=== PATIENT | female | born 1940 | race Caucasian/White ===

== ENCOUNTER 2022-11-11 03:14 | Day surgery (SDC) | payer MEDICARE, OTHER, SELFPAY ==
[2022-11-06 11:12] VITALS: BMI 28.2
--- NOTE | 2022-11-06 11:35 | PC.NURSE ---
Completed pre-procedure phone call with son/GONZÁLEZ Cesar. Son was unsure of patients medications and cardiac history. Called and verified medication list and cardiac history with PCP office.
[2022-11-11] MEDS: LACTATED RINGERS 1,000 ML 150 ML IV CONT (10:28)
--- NOTE | 2022-11-11 10:33 | PM.HPGS ---
History of Present Illness History of Present Illness Consent: Risks, benefits, and alternatives have been discussed and questions answered. Patient agrees to proceed with procedure. Chief complaint: dysphagia Narrative: Greta Estrada is a 82 year old female Referred for EGD. Patient has difficulty swallowing for many years. She foods as though food hangs in her throat. She states this happens with all categories of food but not with liquids. She denies any heartburn or chest pain. She has no abdominal pain. 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 Patient is unable to say whether this symptoms similar to prior symptoms many years ago. Family history noncontributory. Review of Systems Review of Systems: Review of systems noncontributory. [facility] Social History Social History Smoking status: Never smoker Alcohol intake: never Substance use type: does not use Living arrangements: with family Spiritual care concerns: No Meds Home Medications and Allergies Home Medications Medication Instructions Recorded Confirmed Type carbidopa 25 mg-levodopa 100 mg 1 tablet PO TID 11/06/22 11/11/22 History tablet diltiazem HCl 180 mg 180 mg PO DAILY 11/06/22 11/11/22 History capsule,extended release 24 hr, controlled empagliflozin 10 mg tablet 10 mg PO DAILY 11/06/22 11/11/22 History (Jardiance) famotidine 20 mg tablet 20 mg PO BID 11/06/22 11/11/22 History gabapentin 300 mg capsule 300 mg PO HS 11/06/22 11/11/22 History glimepiride 4 mg tablet 4 mg PO BID 11/06/22 11/11/22 History iron-vitamin B complex tablet 1 tablet PO DAILY 11/06/22 11/06/22 History linaclotide 72 mcg capsule 72 mcg PO DAILY PRN Constipation 11/06/22 11/11/22 History (Linzess) melatonin 5 mg tablet 5 mg PO HS PRN Sleep 11/06/22 11/06/22 History metformin 500 mg tablet 1,000 mg PO BID 11/06/22 11/06/22 History oxybutynin chloride 5 mg tablet 10 mg PO BID 11/06/22 11/06/22 History Allergies Allergy/AdvReac Type Severity Reaction Status Date / Time No Known Allergies Allergy Verified 11/11/22 10:23 Exam Narrative: Physical exam reveals patient to be alert. Vital signs stable. HEENT exam is unremarkable. Patient is anicteric. Lungs are clear to auscultation and percussion. Heart is without murmur or extra sounds. Abdomen bowel sounds are present soft nontender with no organomegaly. Assessment and Plan Assessment and plan (1) Dysphagia: Code(s): R13.10 - Dysphagia, unspecified Status: Acute Assessment and Plan: Patient complains of difficulty swallowing. She reports food catching in her throat. But not liquids. Plan for EGD to assess more thoroughly. She does have a distant history of esophageal web. We will look to see if this has recurred. Patient on famotidine 20mg p.o. b.i.d.. A apparently for indigestion but patient is somewhat uncertain as to etiology.
[2022-11-11 10:37] LABS: Glucose Point of Care 118 mg/dl (65-105)
[2022-11-11 10:41] VITALS: BP 139/113; PULSE 119; RESP 18; TEMP 36.1; O2SAT 97; BMI 23.1
[2022-11-11 11:29] VITALS: BP 110/65; PULSE 75; RESP 20; O2SAT 94
[2022-11-11 11:39] VITALS: BP 116/66; PULSE 69; RESP 21; O2SAT 93
[2022-11-11 11:49] VITALS: BP 125/80; PULSE 73; RESP 19; O2SAT 94
== END 2022-11-11 12:02 | disposition home or self-care (01) ==
PROVIDERS: PCP Internal Medicine; Visit Provider Internal Medicine Gastroenterology
PROC: 0DJ08ZZ Inspection of Upper Intestinal Tract, Via Natural or Artificial Opening Endoscopic (ICD-10-PCS; CPT 43235; principal; 2022-11-11 11:00)
DX: Q39.4 Esophageal web (principal); Z79.84 Long term (current) use of oral hypoglycemic drugs
CPT/HCPCS: 43450; 43235; 82948; J2704; J7120